=== PATIENT | male | born 1995 | race Caucasian/White ===

== ENCOUNTER 2020-02-20 12:35 | Day surgery (SDC) | payer BC, OTHER ==
[~2020-02-20] VITALS: Ht 182.9 cm; Wt 87.0 kg
[~2020-02-20 12:35] MED LIST: OMNIPAQUE 350 MG/ML, 100ML BOTTLE ONE
[2020-02-20 13:26] LABS: BASOPHILS % (AUTO) 0 % (0-1); EOSINOPHILS % (AUTO) 1 % (1-7); LYMPHOCYTES % (AUTO) 19 % (22-44); MD NO; MEAN CORPUSCULAR HEMOGLOBIN 30.7 pg (27.5-34.5); MEAN CORPUSCULAR HGB CONC 33.8 g/dL (33.2-36.2); MEAN PLATELET VOLUME 8.8 fL (7.4-10.4); MONOCYTES % (AUTO) 7 % (2-9); NEUTROPHILS % (AUTO) 73 % (42-75); PLATELET COUNT 198 x10^3/uL (130-400); RED BLOOD COUNT 4.98 x10^6/uL (4.38-5.82); RED CELL DISTRIBUTION WIDTH 13.4 % (9.4-14.8)
[2020-02-20 13:36] LABS: ALANINE AMINOTRANSFERASE 21 U/L (12-78); ALBUMIN 3.8 g/dL (3.4-5.0); CALCIUM 8.5 mg/dL (8.5-10.1); CHLORIDE 107 mmol/L (98-107)
[2020-02-20 13:39] LABS: ALKALINE PHOSPHATASE 70 U/L (45-117); BILIRUBIN,TOTAL 0.4 mg/dL (0.2-1.0); TOTAL PROTEIN 6.9 g/dL (6.4-8.2)
[2020-02-20 13:46] LABS: ANION GAP 4 mmol/L (5-15)
--- NOTE | 2020-02-20 14:35 | NUR ---
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
[2020-02-20] MEDS ORDERED: MORPHINE SULFATE 4 MG/ML, 1ML IVPush PRN (15:30)
[2020-02-20] MEDS ORDERED: SODIUM CHLORIDE 0.9% 1,000ML IVBOLUS ONE (15:30)
[2020-02-20] MEDS ORDERED: ONDANSETRON 2MG/ML, 2ML IVPush ONE (15:30)
--- NOTE | 2020-02-20 16:01 | NUR ---
RAPID COVID SENT. PT UNDRESSED, IV ACCESS. REPORT TO OR
[2020-02-20] MEDS ORDERED: BUPIVACAINE/PF-EPI 0.5% 1:200K ONE (16:04)
[2020-02-20] MEDS ORDERED: ONDANSETRON 2MG/ML, 2ML ONE ×2 (16:08→16:30)
[2020-02-20] MEDS ORDERED: MORPHINE SULFATE 4 MG/ML, 1ML ONE (16:08)
[2020-02-20 16:12] VITALS: BP 137/77
[2020-02-20] MEDS ORDERED: PROPOFOL 50 ML ONE (16:24)
[2020-02-20] MEDS ORDERED: FENTANYL PF 250 MCG/5ML ONE (16:24)
[2020-02-20] MEDS ORDERED: MIDAZOLAM 1 MG/ML, 2ML ONE (16:24)
[2020-02-20] MEDS ORDERED: KETOROLAC 30 MG/1 ML ONE (16:30)
[2020-02-20] MEDS ORDERED: DEXAMETHASONE 4 MG/ML, 1ML ONE (16:30)
[2020-02-20] MEDS ORDERED: SUCCINYLCHOLINE 20 MG/ML, 10ML ONE (16:30)
[2020-02-20] MEDS ORDERED: ROCURONIUM 10 MG/ML,10ML ONE (16:30)
[2020-02-20] MEDS ORDERED: BUPIVACAINE/PF-EPI 0.5% 1:200K INFIL ONE (16:58)
[2020-02-20] MEDS ORDERED: DIPHENHYDRAMINE 50 MG/ML, 1ML IVPush PRN (17:30)
[2020-02-20] MEDS ORDERED: FENTANYL PF 100 MCG/2ML IV PRN (17:30)
[2020-02-20] MEDS ORDERED: HYDROmorphone 1 MG/ML, 1ML INJ IVPush PRN (17:30)
[2020-02-20] MEDS ORDERED: OXYcodone 5 MG/5 ML ORAL.SOL UDC PO PRN (17:30)
[2020-02-20] MEDS ORDERED: EPHEDRINE 50 MG/ML, 1ML IM PRN (17:30)
[2020-02-20] MEDS ORDERED: EPHEDRINE 50 MG/ML, 1ML IVPush PRN (17:30)
[2020-02-20] MEDS ORDERED: MEPERIDINE/PF 25MG/0.5ML IVPush PRN (17:30)
[2020-02-20] MEDS ORDERED: DIAZEPAM 5 MG/ML, 2ML IVPush PRN (17:30)
[2020-02-20] MEDS ORDERED: PROMETHAZINE 25 MG/ML, 1ML IVPush PRN (17:30)
[2020-02-20] MEDS ORDERED: ONDANSETRON 2MG/ML, 2ML IVPush PRN (17:30)
[2020-02-20] MEDS ORDERED: MEPERIDINE/PF 25MG/ML,1ML ONE (17:55)
[2020-02-20] MEDS ORDERED: ACETAMINOPHEN 650 MG/20.3 ML UDC ONE (18:20)
[2020-02-20] MEDS ORDERED: OXYcodone 5 MG/5 ML ORAL.SOL UDC ONE (18:21)
== END 2020-02-20 19:05 | disposition home or self-care (01) ==
LOC: EDSTATUS 14:26 → ED 15:33 → EDIP 16:28 → UNDOADMIN 16:28 → OUT 17:00
PROVIDERS: ATTEND Emergency Medicine
DX: K35.30 Acute appendicitis with localized peritonitis, without perforation or gangrene (principal); Z20.828 Contact with and (suspected) exposure to other viral communicable diseases; Z79.899 Other long term (current) drug therapy
CPT/HCPCS: 36415; 44970; 74177; 80053; 83690; 85025; 87635; 88304; 96374; 96375; 99285; J0330; J1100; J1885; J2175; J2250; J2270; J2405; J2704; J3010; J7030; Q9967